=== PATIENT | male | born 1950 | race Caucasian/White ===

== ENCOUNTER 2019-07-08 16:59 | Emergency (ER) | payer MEDICARE, MEDICAID ==
--- OUTSIDE RECORDS SUMMARY | 2019-07-08 17:08 | XMS REPORT | Continuity of Care Document ---
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 Essential hypertension Onset: 06/13/2014 Cerebral palsy Onset: 06/07/2014 Subacute bacterial endocarditis Onset: 06/07/2014 Congestive heart failure Onset: 06/07/2014 Edema of lower extremity Onset: 06/07/2014 Dysphagia Onset: 06/07/2014 Coronary atherosclerosis Onset: 06/07/2014 Benign prostatic hypertrophy with outflow obstruction Onset: 06/07/2014 Peripheral vascular disease Onset: 06/07/2014 Hypertensive disorder Onset: 06/07/2014 Diabetes mellitus Onset: 06/07/2014 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 Retention of urine Onset: 06/07/2014 Intellectual functioning disability Onset: 06/07/2014 Noncompliance with treatment ROBERT Jeffers Onset: 02/15/2019 Bladder muscle dysfunction - overactive ROBERT Jeffers Onset: 02/15/2019 Social History Type Date Description Comments Sex Unknown ETOH Use Never used alcohol Tobacco Use Start: Unknown Patient has never smoked Recreational Drug Use Never Used Drugs Smoking Status Reviewed: 02/15/19 Patient has never smoked Allergies, Adverse Reactions, Alerts Active Allergies Reaction Severity Comments Date Nitrofurantoin, Macrocrystals / Nitrofurantoin, 07/24/2018 Monohydrate Medications Active Medications SIG Qnty Indications Ordering Date Provider Silver Sulfadiazine apply thin film to chris I87.311 Moe 02/17/2018 affected area every MD Noni 1% Cream day as directed Lisinopril Take 1 Tablet By 90tabs I10 Moe 10/06/2014 2.5mg Mouth Every Day MD Noni Tablets Aspirin Low Strength 1 by mouth every Unknown day 81mg Chewtabs Acetaminophen 2 every 4 hours as 200tabs Unknown 325mg needed for pain Tablets Guaifenesin 2 tsp. q4h prn Unknown 100mg/5ML Liquid Maalox Regular 30 cubic Unknown Strength centimeters every 4 hours as needed [id number] Suspension Triple Antibiotic apply as needed q4h Unknown 3.5-400-5000 Ointment Senexon-S one to two tablets 60tabs Moe 8.6-50mg as needed for MD Noni Tablets constipation Furosemide take 1 tablet by 90tabs Moe 20mg mouth every day MD Noni Tablets Tamsulosin HCL Take 1 Capsule By 90caps Moe 0.4mg Mouth Every Day MD Noni Capsules Immunizations CPT Code Status Date Vaccine Reaction Lot # 61381 Given 05/12/2019 Influenza Virus Vaccine, risk & benefits Flu>3yr/ Quadrivalent, Split, discussed [id number] Preservative Free 70049 Given 04/21/2018 Fluzone High Dose 32379 Given 05/19/2017 Fluzone High Dose 37700 Given 05/15/2016 Fluzone High Dose 09180 Given 04/06/2015 Fluzone High Dose 47578 Given 12/13/2014 Tdap - Tetanus/Diptheria/Acellu lar Pertussis 50354 Given 06/07/2014 Pneumococcal Conjugate Vaccine 13 Valent For Intramuscular Use 45280 Given 06/07/2014 Fluzone High Dose Vital Signs Date Vital Result Comment 05/12/2019 12:59pm Weight 177.25 lb BP Systolic Sitting 112 mmHg BP Diastolic Sitting 50 mmHg 02/10/2019 2:31pm Height 70 inches 5'10" Weight 186.44 lb BP Systolic Sitting 112 mmHg BP Diastolic Sitting 60 mmHg Respiratory Rate 14 /min Body Temperature 98.8 F BMI (Body Mass Index) 26.7 kg/m2 Results Test Date Facility Test Result H/L Range Note Basic Metabolic 02/11/2019 [facility] Sodium 139 mmol/L Normal 135-145 Panel [address] [place] [address] [phone] Potassium 4.4 mmol/L Normal 3.5-5.0 Chloride 105 mmol/L Normal 101-111 Co2 Carbon Dioxide 28 mmol/L Normal 22-32 Anion Gap 6 mmol/L Normal 2-11 Glucose 80 mg/dL Normal 70-100 Blood Urea Nitrogen 20 mg/dL Normal 6-24 Creatinine 1.23 mg/dL High 0.67-1.17 BUN/Creatinine Ratio 16.3 Normal 8-20 Calcium 9.6 mg/dL Normal 8.6-10.3 Egfr Non- 58.0 >60 Egfr 70.2 >60 1 CBC Auto 02/11/2019 [facility] White Blood 7.7 10^3/uL Normal 3.5-10.[address] [place] [address] [phone] Red Blood Count 4.59 10^6/uL Normal 4.18-5.48 Hemoglobin 13.8 g/dL Low 14.0-18.0 Hematocrit 42 % Normal 42-52 Mean Corpuscular Volume 91 fL Normal 80-94 Mean Corpuscular Hemoglobin 30 pg Normal 27-31 Mean Corpuscular HGB Conc 33 g/dL Normal 31-36 Red Cell Distribution Width 14 % Normal 10-15 Platelet Count 150 10^3/uL Normal 150-450 Mean Platelet Volume 9.5 fL Normal 7.4-10.4 Abs Neutrophils 5.1 10^3/uL Normal 1.5-7.7 Abs Lymphocytes 1.9 10^3/uL Normal 1.0-4.8 Abs Monocytes 0.4 10^3/uL Normal 0-0.8 Abs Eosinophils 0.2 10^3/uL Normal 0-0.6 Abs Basophils 0.1 10^3/uL Normal 0-0.2 Abs Nucleated RBC 0.0 10^3/uL Granulocyte % 65.6 % Lymphocyte % 24.7 % Monocyte % 5.7 % Eosinophil % 3.0 % Basophil % 1.0 % Nucleated Red Blood Cells % 0.0 Liver Function 02/11/2019 [facility] Total Protein 7.5 g/dL Normal 6.4-8.[address] [place] [address] [phone] Albumin 4.6 g/dL Normal 3.2-5.2 Globulin 2.9 g/dL Normal 2-4 Albumin/Globulin Ratio 1.6 Normal 1-3 Total Bilirubin 0.70 mg/dL Normal 0.2-1.0 Direct Bilirubin 0.10 mg/dL Normal 0.03-0.18 Indirect Bilirubin 0.6 mg/dL Normal 0.3-1.0 Alkaline Phosphatase 69 U/L Normal 34-104 Alt 9 U/L Normal 7-52 Ast 14 U/L Normal 13-39 Lipid Profile 02/11/2019 [facility] Triglycerides 59 mg/dL 2 (Trig/Chol/HDL) [address] [place] [address] [phone] Cholesterol 141 mg/dL 3 HDL Cholesterol 50.7 mg/dL 4 LDL Cholesterol 79 mg/dL 5 Laboratory test 02/11/2019 [facility] Hemoglobin A1c 5.5 % Normal 4.0-5.[address] (Glyco HGB) [place] [address] [phone] TSH (Thyroid Stim Horm) 3.72 mcIU/mL Normal 0.34-5.60 7 1 Because ethnic data is not always readily available, this report includes an eGFR for both -Americans and non- Americans. The National Kidney Disease Education Program (NKDEP) does not endorse the use of the MDRD equation for patients that are not between the ages of 18 and 70, are , have extremes of body size, muscle mass, or nutritional status, or are non- or non-. According to the National Kidney Foundation, irrespective of diagnosis, the stage of the disease is based on the level of kidney function: Stage Description GFR(mL/min/1.73 m(2)) 1 Kidney damage with normal or decreased GFR 90 2 Kidney damage with mild decrease in GFR 60-89 3 Moderate decrease in GFR 30-59 4 Severe decrease in GFR 15-29 5 Kidney failure <15 (or dialysis) 2 Desirable: <150 Borderline High: 150-199 High: 200-499 Very High: >500 3 Desirable: <200 Borderline High: 200-239 High: >239 4 Low: <40 Desirable: 40-60 High: >60 5 Desirable: <100 Near Optimal: 100-129 Borderline High: 130-159 High: 160-189 Very High: >189 6 Therapeutic target for the treatment of diabetes mellitus patients is <7% HBA1C, and in selective patients <6.0%. Please refer to [place] [employer] diabetic care guidelines for further information. 7 FASTING Procedures Date Code Description Status 05/03/2019 [id number] Diabetic Retinal Eye Exam Completed Medical Devices Description No Information Available Encounters Type Date Location Provider Dx Diagnosis Office Visit 02/10/2019 [facility] ROBERT Jeffers Z00.01 Encounter for 2:30p general adult medical exam w abnormal findings Z91.19 Patient's noncompliance w oth medical treatment and regimen E11.9 Type 2 diabetes mellitus without complications I10 Essential (primary) hypertension S80.10xA Contusion of unspecified lower leg, initial encounter Assessments Date Code Description Provider 05/12/2019 E11.9 Type 2 diabetes mellitus without complications ROBERT Jeffers 05/12/2019 I10 Essential (primary) hypertension ROBERT Jeffers 05/12/2019 I50.9 Heart failure, unspecified ROBERT Jeffers 05/12/2019 Z23 Encounter for immunization ROBERT Jeffers 02/10/2019 Z00.01 Encounter for general adult medical examination ROBERT Jeffers with abnorma 02/10/2019 Z91.19 Patient's noncompliance with other medical ROBERT Jeffers treatment and reg 02/10/2019 E11.9 Type 2 diabetes mellitus without complications ROBERT Jeffers 02/10/2019 I10 Essential (primary) hypertension ROBERT Jeffers 02/10/2019 S80.10xA Contusion of unspecified lower leg, initial ROBERT Jeffers encounter Plan of Treatment Future Appointment(s):08/12/2019 1:00 pm - ROBERT Jeffers at [facility] - iA Jansen PAE11.9 Type 2 diabetes mellitus without complicationsNew Labs:Basic Metabolic Panel, Ordered: 05/12/19Hemoglobin A1c (Glyco HGB), Ordered : 05/12/19Liver Function Panel, Ordered: 05/12/19Lipid Profile (Trig/Chol/HDL), Ordered: 05/12/19Urine Microalbumin Random, Ordered: 05/12/19I10 Essential ( primary) [id number] Heart failure, [id number] Encounter for immunization Functional Status Functional Condition Comment Date Status Rolling walker is used to ambulate Active Mental Status Description No Information Available Referrals Description No Information Available
[2019-07-08 17:17] VITALS: BP 134/40
--- NOTE | 2019-07-08 17:39 | UC ---
Respiratory Complaint HPI - HPI Summary HPI Summary: Pt is accompanied by [employer] employee. 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 Pt has known cardiace condition. - History of Current Complaint Chief Complaint: UCGeneralIllness Stated Complaint: COUGH/FATIGUE Time Seen by Provider: 07/08/19 17:08 Hx Obtained From: Family/Bale Sewer Onset/Duration: Gradual Onset, Lasting Days, Still Present, Worse Since - onset Timing: Constant Severity Initially: Mild Severity Currently: Moderate Pain Intensity: 0 Character: Cough: Nonproductive Aggravating Factors: Deep Breaths, Recumbent Position Alleviating Factors: Nothing Associated Signs And Symptoms: Positive: URI, Nasal Congestion - Risk Factors Pulmonary Embolism Risk Factors: Negative Cardiac Risk Factors: CHF, CAD Pseudomonas Risk Factors: Negative Tuberculosis Risk Factors: Communal Living - Allergies/Home Medications Allergies/Adverse Reactions: Allergies Allergy/AdvReac Type Severity Reaction Status Date / Time nitrofurantoin Allergy Unknown Verified 07/08/19 17:11 [From Macrodantin] Reaction Details PMH/Surg Hx/FS Hx/Imm Hx Previously Healthy: Yes Cardiovascular History: Cardiac Disease, Congestive Heart Failure Psychological History: Other - cognitive dysfunction - Surgical History Surgical History: None - Family History Known Family History: Positive: Unknown - Social History Occupation: Disabled Lives: [place] Alcohol Use: None Substance Use Type: None Smoking Status (MU): Never Smoked Tobacco Have You Smoked in the Last Year: No - Immunization History Vaccination Up to Date: Yes Review of Systems All Other Systems Reviewed And Are Negative: Yes Constitutional: Positive: Chills, Fatigue Skin: Positive: Negative Eyes: Positive: Negative ENT: Positive: Sinus Congestion Respiratory: Positive: Cough Cardiovascular: Positive: Negative Gastrointestinal: Positive: Negative Genitourinary: Positive: Negative Motor: Positive: Negative Neurovascular: Positive: Negative Musculoskeletal: Positive: Negative Neurological: Positive: Negative Psychological: Positive: Negative Is Patient Immunocompromised?: No Physical Exam Triage Information Reviewed: Yes Appearance: Ill-Appearing Vital Signs: Initial Vital Signs Temp 99.3 F 07/08/19 17:11 Pulse 67 07/08/19 17:11 Resp 16 07/08/19 17:11 BP 134/40 07/08/19 17:11 Pulse Ox 99 07/08/19 17:11 Vital Signs Reviewed: Yes Eye Exam: Normal ENT: Positive: Nasal congestion Respiratory: Positive: Decreased breath sounds Cardiovascular: Positive: Other: - regualr, irregualr rate. Pt has known hx of cardiac disorder. Pt sees Dr. Landaverde at [facility] [place] Musculoskeletal Exam: Normal Neurological Exam: Normal Psychological Exam: Normal Skin Exam: Normal Respiratory Course/Dx - Differential Dx/Diagnosis Differential Diagnosis/HQI/PQRI: Bronchitis, Exacerbation Of COPD, Lower Resp Infection Provider Diagnosis: Bronchitis Discharge ED - Sign-Out/Discharge Documenting (check all that apply): Patient Departure All imaging exams completed and their final reports reviewed: No Studies - Discharge Plan Condition: Stable Disposition: HOME Prescriptions: Benzonatate CAP* [Tessalon 100 MG CAP*] 100 mg PO Q8H PRN #30 cap PRN Reason: Cough DOXYcycline CAP(*) [DOXYcycline 100MG CAP(*)] 100 mg PO Q12H #20 cap Patient Education Materials: Acute Bronchitis (ED) Referrals: Moe Cheney MD [Primary Care Provider] - If Needed Saima SAEED,Dixon Hewitt [Medical Doctor] - Additional Instructions: Please follow up with your PCP and your media monitor as soon as possible. If your symptoms do not improve or they worsen, please seek care at the closest emergency room as soon as possible. - Billing Disposition and Condition Condition: STABLE Disposition: Home
== END 2019-07-08 17:37 | disposition home or self-care (01) ==
LOC: UCCORT 16:59
DX: J40 Bronchitis, not specified as acute or chronic (principal); I50.9 Heart failure, unspecified; Z88.1 Allergy status to other antibiotic agents
CPT/HCPCS: 99212; G0463